=== PATIENT | female | born 1970 | race Caucasian/White ===

== ENCOUNTER 2018-02-15 14:30 | Outpatient (REF) | payer SELFPAY ==
[2018-02-15 22:35] LABS: CREATININE 0.88 mg/dL (0.55-1.02); Cholesterol 250 mg/dL (50-200); HDL Cholesterol 43 mg/dL (40-60); LDL CHOLESTEROL 168 mg/dL (<100); Triglyceride 138 mg/dL (30-150)
== END 2018-02-15 14:50 ==
LOC: NCHCN 14:30
PROVIDERS: PCP Nurse Practitioner Family; Visit Provider Nurse Practitioner Family
DX: R94.4 Abnormal results of kidney function studies (principal); I48.0 Paroxysmal atrial fibrillation; R10.13 Epigastric pain; F41.0 Panic disorder [episodic paroxysmal anxiety]; E78.5 Hyperlipidemia, unspecified; R00.2 Palpitations; R51 Headache; F41.9 Anxiety disorder, unspecified
CPT/HCPCS: 80061; 83721; 82565

== ENCOUNTER 2018-08-17 10:29 | Outpatient (REF) | payer SELFPAY ==
[2018-08-17 21:15] LABS: Abs Immature Grans 0.02 k/cumm (0.0-0.09); Absolute Basophil Count 0.07 k/cumm (0.0-0.2); Absolute Eosinophil Count 0.29 k/cumm (0.0-0.7); Absolute Lymphocyte Count 1.57 k/cumm (1.2-3.4); Absolute Monocyte Count 0.62 k/cumm (0.11-0.7); Absolute Neutrophil Count 3.72 k/cumm (1.2-6.7); Basophils % 1.1; Eosinophils % 4.6; HCT 37.1 % (36.0-46.0); HGB 12.1 g/dL (12.0-15.5); Immature Grans % 0.3; Mean Corp. HGB Concentration 32.6 g/dL (32.0-36.0); Mean Corpuscular Hemoglobin 29.4 pg (27.0-33.0); Mean Corpuscular Volume 90.3 fL (80-95); Mean Platelet Volume 11.6 fL (8.0-11.0); Monocytes % 9.9; Neutrophils % 59.1; Platelet Count 253 x1000/uL (130-400); RBC 4.11 m/cumm (4.00-5.20); RBC Distribution Width 13.5 % (11.7-14.6); White Blood Cell Count 6.29 k/cumm (4.4-10.8)
[2018-08-17 21:20] LABS: Albumin 3.6 g/dL (3.4-5.0); Anion Gap 11.4 mmol/L (3-11); BUN 12 mg/dL (7-18); CO2 25.6 mmol/L (21.0-32.0); CREATININE 0.97 mg/dL (0.55-1.02); Calcium 8.8 mg/dL (8.5-10.1); Chloride 104 mmol/L (98-107); Glucose 79 mg/dL (70-100); Potassium 4.1 mmol/L (3.5-5.1); Sodium 141 mmol/L (136-145)
[2018-08-17 21:46] LABS: ALT 25 U/L (12-78); AST 18 U/L (15-37); Alkaline Phosphatase 46 U/L (46-116); Bilirubin, Total 0.4 mg/dL (0.2-1.0)
== END 2018-08-17 10:49 ==
LOC: NCHCN 10:29
PROVIDERS: PCP Nurse Practitioner Family; Visit Provider Nurse Practitioner Family
DX: R10.13 Epigastric pain (principal); I48.0 Paroxysmal atrial fibrillation; E78.5 Hyperlipidemia, unspecified; R00.2 Palpitations; F41.0 Panic disorder [episodic paroxysmal anxiety]
CPT/HCPCS: 80053; 85025

== ENCOUNTER 2018-08-24 00:54 | Outpatient (CLI) | payer SELFPAY ==
--- NOTE | 2018-08-24 11:15 | DI.US_ITS ---
SYMPTOMS/DIAGNOSIS: ABD PAIN EPIGASTRIC, R10.13 ABDOMEN ULTRASOUND: Comparison is made with 2Oct17. The liver is normal in size and echogenicity. No focal liver lesions or biliary dilatation is seen. The gallbladder has a normal appearance without evidence of stones or wall thickening. The kidneys, spleen, pancreas and aorta are unremarkable. There is no ascites. IMPRESSION: Negative abdomen ultrasound.
== END 2018-08-24 01:14 ==
PROVIDERS: PCP Nurse Practitioner Family; Visit Provider Nurse Practitioner Family
DX: R10.13 Epigastric pain (principal)
CPT/HCPCS: 76700

== ENCOUNTER 2020-04-06 15:12 | Outpatient (REF) | payer OTHER, SELFPAY ==
[2020-04-06 21:45] LABS: ALT 21 U/L (14-59); AST 15 U/L (15-37); Albumin 3.9 g/dL (3.4-5.0); Alkaline Phosphatase 40 U/L (46-116); Anion Gap 8.4 mmol/L (3-11); BUN 13 mg/dL (7-18); Bilirubin, Total 0.4 mg/dL (0.2-1.0); CO2 25.6 mmol/L (21.0-32.0); Calcium 8.8 mg/dL (8.5-10.1); Calculated LDL 198 mg/dL (<100); Chloride 104 mmol/L (98-107); Cholesterol 277 mg/dL (<200); Estimated GFR 59.18 (mL/min/1.73m2); Glucose 74 mg/dL (74-106); HDL Cholesterol 44 mg/dL (40-60); Potassium 3.7 mmol/L (3.5-5.1); Sodium 138 mmol/L (136-145); Total Protein 7.4 g/dL (6.4-8.2); Triglyceride 179 mg/dL (<150); Vitamin B12 492 pg/mL (193-986)
[2020-04-09 11:37] LABS: Hepatitis C Ab w Rflx HCV PCR Negative (Negative)
[2020-04-09 11:50] LABS: HIV-1/2 Ag & Ab Screen Negative (Negative)
== END 2020-04-06 15:32 ==
LOC: NCHCN 15:12
PROVIDERS: PCP Nurse Practitioner Family; Visit Provider Nurse Practitioner Family
DX: E78.5 Hyperlipidemia, unspecified (principal); R51.9 Headache, unspecified; I48.0 Paroxysmal atrial fibrillation; R00.2 Palpitations; F41.9 Anxiety disorder, unspecified; F41.0 Panic disorder [episodic paroxysmal anxiety]; K44.9 Diaphragmatic hernia without obstruction or gangrene; Z11.4 Encounter for screening for human immunodeficiency virus [HIV]; Z11.59 Encounter for screening for other viral diseases; Z79.899 Other long term (current) drug therapy
CPT/HCPCS: 80053; 80061; 86803; 87389; 82607; 83735

== ENCOUNTER 2020-06-08 02:43 | Outpatient (CLI) | payer OTHER, SELFPAY ==
[2020-06-08 11:37] LABS: Source Nasal/Nares
[2020-06-08 16:48] LABS: COVID-19 PCR Negative (Negative)
== END 2020-06-08 02:44 | disposition home or self-care (01) ==
LOC: LBO 02:44
PROVIDERS: PCP Nurse Practitioner Family; Visit Provider Surgery
DX: Z20.822 Contact with and (suspected) exposure to COVID-19 (principal); Z01.818 Encounter for other preprocedural examination
CPT/HCPCS: 87635

== ENCOUNTER 2020-06-11 11:06 | Day surgery (SDC) | payer OTHER, SELFPAY ==
--- NOTE | 2020-06-11 06:58 | ENDO_ITS ---
Date of service: 06/11/20 Time of Service: 12:45 Endoscopy Report DATE OF PROCEDURE: 06/11/20 PRE-OP DIAGNOSIS: Gastric pain POST-OP DIAGNOSIS: same (mild gastritis and esophagitis) PROCEDURE: EGD with biopsies SURGEON: Casandra Paz ANESTHESIA TYPE: General:No Airway (ASA 2/Melissa Gould CRNA) ESTIMATED BLOOD LOSS: 2 PATHOLOGY: other (Duodenal bx, gastric bx, GE junction bx) COMPLICATIONS: None DISPOSITION: same day INDICATIONS: Mrs. Morse is a pleasant 49 year old female with gastric pain, bloating and some dysphagia over the last few months. She had an upper endoscopy done a few years ago and was noted to have a small hiatal hernia. At that time states she was started on Pepcid. In May she was switched over to omeprazole because she was having worsening symptoms. She did not feel that this was helping and so more recently she was started on pantoprazole 40 mg twice daily as well as Carafate 1 g 4 times a day. She continues to have bloating, dysphagia and intermittent epigastric pain despite these medications. She also has some intermittent nausea but no vomiting. We discussed upper endoscopy with biopsies. I also reviewed with her that if her stomach and esophagus are normal then we should pursue looking at her gallbladder as sometimes issues with the gallbladder can mimic gastritis. Risks, benefits and complications have been reviewed. Complications include but are not limited to bleeding, pain, perforation, sore throat, aspiration, and adverse reaction to the medications. Questions were entertained and answered to their satisfaction and they wished to proceed. No guarantees were given or implied. COVID-19 testing explained to the patient. Reason for test reviewed. Quarantine per state requirements reviewed with patient. Patient understands and agrees to testing FINDINGS: Mild inflammation of the stomach and esophagus PROCEDURE DESCRIPTION: After informed consent was obtained the patient was take to the procedure room and placed in a supine position. Monitors were applied and a time out was done. The patients name, date of , procedure type, allergies to medications and metal in their body was reviewed. A bite block was placed and the patient was sedated. Once sedated and comfortable the gastroscope was advanced through the oropharynx which was grossly normal into the esophagus. The proximal and mid- esophagus were normal. In the distal esophagus there was mild inflammation noted. The scope was advanced into the stomach and through the pylorus into the 3rd portion of the duodenum. The duodenum was noted to be normal. Biopsies were done to rule out Celiac. The scope was retracted back into the stomach. There was mild inflammation noted and biopsies were done to rule out H. pylori. There were no ulcers. The scope was retroflexed. The cardia and fundus were noted to be normal. There was a small hiatal hernia noted. The scope was retracted back into the esophagus and biopsies were done of the GE junction to rule out Copeland's. The Z line was regular. The GE junction was at 38 cm. The scope was removed and the patient was woken up and taken back to [facility] in stable condition. Follow up: 2 weeks in the office
--- NOTE | 2020-06-11 06:59 | W.PM.DSUDISC ---
Discharge Plan Disposition Patient Disposition: HOME Condition: Good Discharge Details Reason For Visit: Gastric pain Attending Provider: Casandra Paz Primary Care Provider: Maria D Mtz Home Meds and New Rx's Prescriptions: Continued pantoprazole 40 mg tablet,delayed release (DR/EC) 40 mg PO BID RF: 0 sucralfate 1 gram tablet 1 g PO QACHS RF: 0 aspirin [Adult Low Dose Aspirin] 81 mg tablet,delayed release (DR/EC) 81 mg PO DAILY RF: 0 lorazepam 0.5 mg tablet 0.5 mg PO TID PRNRF: 0 cholecalciferol (vitamin D3) [Vitamin D3] 400 UNIT tablet 400 unit PO DAILY RF: 0 Discharge Instructions Additional Instructions: Findings: mild inflammation of the stomach and esophagus Follow up: 2 weeks Please call if you develop: fevers >101.5 Nausea or Vomiting Abdominal pain that is not transient DAY SURGERY UNIT POST ENDOSCOPY INSTRUCTIONS 1. Because there will be medication in your system for the next 24 hours, you may feel a little sleepy. Your coordination will be affected. Therefore: a. Do not drive or operate dangerous equipment for 24 hours. b. Do not drink alcohol beverages for 24 hours (not even beer). c. Plan to go home and rest for the day. 2. Generally there are no restrictions on your activity after a day or so has gone by, but you may feel a bit fatigued for a few days. 3 After you arrive home you may have a light meal and return to a normal diet as you can tolerate it without feeling sick to your stomach. 4. After surgery, you may feel pain or discomfort. This should be only transient, but if it persists please contact your doctor. 5. If there are any questions regarding the findings of your procedure, please feel free to contact your doctor. 6. If you are unable to contact your doctor with a problem, contact the hospital at [phone]. 7. Continue all your regular medications unless directed otherwise. I understand the above instructions and have no questions. Signature of Patient or Responsible Adult Escort Date/Time Name of Responsible Adult Escort Signature of Nurse Date/Time Referrals: Casandra Paz MD [ [facility] STAFF PHYSICIAN] - 06/29/20 10:00 am Activity:: Activity as Tolerated Diet:: As Tolerated Discharge Orders Discharge Orders: Discharge Order (Routine); Ordered 06/11/20 Ordered By: Casandra Paz
[2020-06-11 11:35] VITALS: BP 130/77; PULSE 65; RESP 16; TEMP 36.2; O2SAT 100
[2020-06-11] MEDS: Lactated Ringers 1,000 ML 80 ML IV (12:00)
--- NOTE | 2020-06-11 12:24 | BOWEL_PTH ---
PATIENT: Odalis Morse LOC: [facility] U#:[id number] AGE/SX: 49/F ROOM: RE06/11/[address]: Casandra Paz MD : 1970 BED: DIS: 06/11/2020 SPEC #: [id number] RECD: 06/11/20 14:21 STATUS: LILI REChristine #: [id number] BARRETT: 06/11/20 12:[address]: Casandra Paz DEPT: Surgical Specimen RECD BY: Shelley Maurice ENTERED: 06/11/20 14:22 SP TYPE: Bowel OTHR DR: Maria D Mtz Tissues: 1 - BIOPSY BOWEL 2 - STOMACH BIOPSY 3 - ESOPHAGUS BIOPSY Procedures: SPECIAL STAIN 2 GROSS AND MICRO LEVEL 4 Comments: [id number]
[2020-06-11 13:04] VITALS: BP 109/65; PULSE 57; RESP 16; TEMP 36.4; O2SAT 99
== END 2020-06-11 13:43 | disposition home or self-care (01) ==
LOC: SUR 11:06
PROVIDERS: PCP Nurse Practitioner Family; Visit Provider Surgery
PROC: 0DJ68ZZ Inspection of Stomach, Via Natural or Artificial Opening Endoscopic (ICD-10-PCS; CPT 43235; principal; 2020-06-11 12:15)
DX: K21.00 Gastro-esophageal reflux disease with esophagitis, without bleeding (principal); K29.70 Gastritis, unspecified, without bleeding; K44.9 Diaphragmatic hernia without obstruction or gangrene; R10.13 Epigastric pain
CPT/HCPCS: 43239; 81025; 88305; 88313; J2001; J2405; J2704

== ENCOUNTER 2020-06-22 04:17 | Outpatient (CLI) | payer OTHER, SELFPAY ==
--- NOTE | 2020-06-22 06:30 | DI.NM_ITS ---
EXAM: NM HEPATOBILIARY CCK GRP CLINICAL HISTORY: Bloating,EPIGASTRIC PAIN,R10.13,R14.0. TECHNIQUE: Injected dose: 5 mCi Tc-99 mebrofenin Initial dynamic images: 60 minutes Post-Gallbladder fillin.1 mcg CCK infusion as per protocol. Addition images: Per protocol. COMPARISON: US US ABDOMEN from 08/24/2018 FINDINGS: Normal hepatic transit time. Prompt excretion into the small bowel. Prompt excretion into the gallbladder. The gallbladder ejection fraction was calculated at 44 percen t. (Normal [facility] gallbladder ejection fraction with CCK > 40%. IMPRESSION: 1. No evidence of acute cholecystitis or acalculous disease. SNM guidelines: Gallbladder visualization should be present by 3 hours. Delayed [id number] hilliard sit beyond 60 min raises the suspicion for partial common bile duct (CBD) obstruction. Gallbladder ejection fraction <35% has a good correlation with acalculous disease (i.e., chronic acal culous cholecystitis, cystic duct syndrome, sphincter of Oddi disease).
== END 2020-06-22 04:37 ==
PROVIDERS: PCP Nurse Practitioner Family; Visit Provider Surgery
DX: R10.13 Epigastric pain (principal); R14.0 Abdominal distension (gaseous)
CPT/HCPCS: 78227

== ENCOUNTER 2021-02-11 11:08 | Outpatient (REF) | payer OTHER, SELFPAY ==
[2021-02-11 16:15] LABS: Calculated LDL 215 mg/dL (<100); Cholesterol 291 mg/dL (<200); HDL Cholesterol 52 mg/dL (40-60); Triglyceride 121 mg/dL (<150)
== END 2021-02-11 11:09 | disposition home or self-care (01) ==
LOC: NCHCN 11:08
PROVIDERS: PCP Nurse Practitioner Family; Visit Provider Nurse Practitioner Family
DX: E78.5 Hyperlipidemia, unspecified (principal)
CPT/HCPCS: 80061

== ENCOUNTER 2022-02-24 17:46 | Outpatient (REF) | payer OTHER, SELFPAY ==
[2022-02-24 21:22] LABS: Calculated LDL 169 mg/dL (<100); Cholesterol 260 mg/dL (<200); HDL Cholesterol 47 mg/dL (40-60); Triglyceride 222 mg/dL (<150)
== END 2022-02-24 17:47 | disposition home or self-care (01) ==
LOC: NCHCN 17:46
PROVIDERS: PCP Nurse Practitioner Family; Visit Provider Nurse Practitioner Family
DX: E78.5 Hyperlipidemia, unspecified (principal)
CPT/HCPCS: 80061

== ENCOUNTER 2022-03-13 09:52 | Outpatient (RCR) | payer OTHER, SELFPAY ==
--- NOTE | 2022-03-13 09:45 | HOLTER_ITS ---
APPROVED REPORT Conclusion This is a 48-hour Holter monitor ordered for palpitations Rhythm throughout was sinus with an average heart rate of 61. Minimum was 44 maximum 117 There were rare isolated atrial premature beats There were frequent ventricular ectopic beats, comprising approximately 6% of total. There were no c ouplets triplets or ventricular tachycardia. Bigeminy and trigeminy were noted There was no atrial fibrillation, no high-grade AV block, no SVT, no pauses greater than 3 seconds Patient reported symptoms throughout the recording, likely related to frequent PVCs
== END 2022-04-08 23:59 | disposition home or self-care (01) ==
LOC: CARDOPNVT 09:52
PROVIDERS: PCP Nurse Practitioner Family; Visit Provider Nurse Practitioner Family
DX: I49.3 Ventricular premature depolarization (principal)
CPT/HCPCS: 93225; 93226

== ENCOUNTER 2022-03-20 15:37 | Outpatient (REF) | payer OTHER, SELFPAY ==
[2022-03-20 21:05] LABS: Abs Immature Grans 0.01 10^3/uL (0.0-0.06); Absolute Eosinophil Count 0.19 10^3/uL (0.0-0.7); Absolute Lymphocyte Count 2.13 10^3/uL (1.2-3.4); Absolute Monocyte Count 0.54 10^3/uL (0.1-0.8); Absolute Neutrophil Count 4.15 10^3/uL (1.2-6.7); Basophils % 1.4; Eosinophils % 2.7; HCT 36.8 % (36.0-46.0); HGB 12.1 g/dL (11.2-15.7); Immature Grans % 0.1; Lymphocytes % 29.9; MCHC 32.9 % (32.0-36.0); MCV 91 fL (80-95); MPV 10.9 fL (8.0-11.0); Monocytes % 7.6; Neutrophils % 58.3; Platelet Count 260 10^3/uL (130-400); RBC 4.04 10^6/uL (3.93-5.22); RDW 12.1 % (11.7-14.6); RDW-SD 40.5 fL; WBC 7.12 10^3/uL (4.4-10.8)
[2022-03-20 21:39] LABS: ALT 18 U/L (14-59); AST 18 U/L (15-37); Albumin 4.2 g/dL (3.4-5.0); Alkaline Phosphatase 44 U/L (46-116); BUN 12 mg/dL (7-18); Bilirubin, Total 0.3 mg/dL (0.2-1.0); CREATININE 1.1 mg/dL (0.55-1.02); Calcium 9.2 mg/dL (8.5-10.1); Chloride 103 mmol/L (98-107); Estimated GFR 61.22 (mL/min/1.73m2); Glucose 103 mg/dL (74-106); Lipase 113 U/L (73-393); Sodium 138 mmol/L (136-145); Total Protein 7.4 g/dL (6.4-8.2)
== END 2022-03-20 15:38 | disposition home or self-care (01) ==
LOC: NCHCN 15:37
PROVIDERS: PCP Nurse Practitioner Family; Visit Provider Family Medicine
DX: R10.13 Epigastric pain (principal)
CPT/HCPCS: 80053; 83690; 85025

== ENCOUNTER 2022-03-21 12:19 | Outpatient (REF) | payer OTHER, SELFPAY ==
[2022-03-24 15:01] LABS: Helicobacter pylori Ag, Feces Negative (Negative)
== END 2022-03-21 12:20 | disposition home or self-care (01) ==
LOC: NCHCN 12:19
PROVIDERS: PCP Nurse Practitioner Family; Visit Provider Family Medicine
DX: R10.13 Epigastric pain (principal)
CPT/HCPCS: 87338

== ENCOUNTER → 2023-06-26 00:18 | Outpatient (CLI) | payer OTHER, SELFPAY ==
--- NOTE | 2023-06-26 | DI.MAMMO_ITS ---
Exam(s) MAMMO SCREENING EXAM: MAMMO SCREENING CLINICAL HISTORY: SCREENING, FAMILY HX BREAST CA, Z80.3 TECHNIQUE: Mammograms were interpreted according to the usual protocol including computer analysis w [employer] CAD system, tomosynthesis and C-view imaging. COMPARISON: 2018 through 2022 FINDINGS: The breasts are composed of scattered fibroglandular densities, Breast Density category B. No suspicious masses or suspicious microcalcifications are seen. No skin thickening or abnormal axillary lymph nodes are seen. There has been no significant change from prior exams. IMPRESSION: BI-RADS Category 1, Negative mammogram Yearly screening mammography is recommended. Breast Density - Category B, scattered fibroglandular densities. A negative radiographic report should not delay biopsy if a dominant or clinically suspicious mass is present. Up to ten percent of cancers are not identified on mammography. A negative report may reinforce clinical impression. Adenosis and dense breasts may obscure an underlying neoplasm. False positive reports average 6 to 10%. Patient will receive a letter notifying them of these results.
== END ==
PROVIDERS: PCP Nurse Practitioner Family; Visit Provider Nurse Practitioner Family
DX: Z12.31 Encounter for screening mammogram for malignant neoplasm of breast (principal); Z80.3 Family history of malignant neoplasm of breast
CPT/HCPCS: 77063; 77067

== ENCOUNTER 2023-07-14 10:48 | Outpatient (REF) | payer OTHER, SELFPAY ==
[2023-07-14 15:40] LABS: ALT 29 U/L (14-59); AST 24 U/L (15-37); Albumin 3.8 g/dL (3.4-5.0); Alkaline Phosphatase 47 U/L (46-116); Anion Gap 7.8 mmol/L (3-11); BUN 15 mg/dL (7-18); Bilirubin, Total 0.4 mg/dL (0.2-1.0); CO2 28.2 mmol/L (21.0-32.0); Calcium 9.1 mg/dL (8.5-10.1); Calculated LDL 216 mg/dL (<100); Chloride 106 mmol/L (98-107); Cholesterol 299 mg/dL (<200); Estimated GFR 68.21 (mL/min/1.73m2); Glucose 84 mg/dL (74-106); HDL Cholesterol 60 mg/dL (40-60); Potassium 4.9 mmol/L (3.5-5.1); Sodium 142 mmol/L (136-145); Total Protein 7.1 g/dL (6.4-8.2); Triglyceride 115 mg/dL (<150)
== END 2023-07-14 10:49 | disposition home or self-care (01) ==
LOC: NCHCN 10:48
PROVIDERS: PCP Nurse Practitioner Family; Visit Provider Nurse Practitioner Family
DX: E78.5 Hyperlipidemia, unspecified (principal)
CPT/HCPCS: 80053; 80061

== ENCOUNTER 2023-08-19 13:54 | Outpatient (REF) | payer OTHER, SELFPAY ==
[2023-08-19 16:36] LABS: Bilirubin Negative (Negative); Blood Large (Negative); Clarity Cloudy (Clear); Glucose Negative (Negative); Ketones Negative (Negative); Leukocyte Esterase Moderate (Negative); Nitrite Negative (Negative); Specific Gravity 1.015 (1.005-1.025); Urobilinogen 0.2 mg/dL (Up to 0.2); pH 5.5 (5-8)
[2023-08-19 16:54] LABS: C & S Indicated? Yes; WBC >50 HPF (0-5)
== END 2023-08-19 13:55 | disposition home or self-care (01) ==
LOC: NCHCN 13:54
PROVIDERS: PCP Nurse Practitioner Family; Visit Provider Nurse Practitioner Family
DX: R35.0 Frequency of micturition (principal); R82.998 Other abnormal findings in urine
CPT/HCPCS: 81003; 81015; 87086

== ENCOUNTER 2023-09-28 13:52 | Outpatient (REF) | payer MEDICAID, SELFPAY ==
[2023-09-28 16:07] LABS: Bilirubin Negative (Negative); Blood Trace-intact (Negative); Clarity Clear (Clear); Glucose Negative (Negative); Ketones Negative (Negative); Leukocyte Esterase Negative (Negative); Nitrite Negative (Negative); Urobilinogen 0.2 mg/dL (Up to 0.2); pH 6.5 (5-8)
[2023-09-28 16:49] LABS: Bacteria Negative HPF (Negative); C & S Indicated? No; Casts Negative LPF (Negative); Crystals Negative HPF (Negative); Epithelial Cells Rare HPF (Negative); Mucus Negative (Negative); RBC 0-2 HPF (0-2); WBC 0-2 HPF (0-5)
== END 2023-09-28 13:53 | disposition home or self-care (01) ==
LOC: NCHCN 13:52
PROVIDERS: PCP Nurse Practitioner Family; Visit Provider Nurse Practitioner Family
DX: R31.21 Asymptomatic microscopic hematuria (principal)
CPT/HCPCS: 81003; 81015

== ENCOUNTER 2023-10-29 09:53 | Outpatient (REF) | payer MEDICAID, SELFPAY ==
[2023-10-29 16:09] LABS: ALT 29 U/L (14-59); AST 19 U/L (15-37); Albumin 3.8 g/dL (3.4-5.0); Alkaline Phosphatase 47 U/L (46-116); Anion Gap 9.1 mmol/L (3-11); BUN 13 mg/dL (7-18); Bilirubin, Total 0.39 mg/dL (0.2-1.0); CO2 26.9 mmol/L (21.0-32.0); Calcium 9.2 mg/dL (8.5-10.1); Calculated LDL 116 mg/dL (<100); Chloride 106 mmol/L (98-107); Cholesterol 194 mg/dL (<200); Estimated GFR 67.78 (mL/min/1.73m2); Glucose 89 mg/dL (74-106); HDL Cholesterol 58 mg/dL (40-60); Potassium 5.1 mmol/L (3.5-5.1); Sodium 142 mmol/L (136-145); Triglyceride 103 mg/dL (<150)
== END 2023-10-29 09:54 | disposition home or self-care (01) ==
LOC: NCHCN 09:53
PROVIDERS: PCP Nurse Practitioner Family; Visit Provider Nurse Practitioner Family
DX: E78.5 Hyperlipidemia, unspecified (principal)
CPT/HCPCS: 80053; 80061

== ENCOUNTER 2023-11-02 07:19 | Outpatient (CLI) | payer MEDICAID, SELFPAY ==
--- NOTE | 2023-11-03 08:16 | W.CARDEVENT ---
Date of service: 11/03/23 Time of Service: 08:16 Cardiac Event Recorder Referring Provider:: Maria D Mtz Indications:: Paroxysmal atrial fibrillation Cardiac Event Note: This is a cardiac event monitor. Patient was monitored for 12 days and 12 hours Predominant rhythm was sinus with an average heart rate of 64. Minimum was 44, maximum 148 there were occasional PVCs, Very rare couplets, no ventricular tachycardia. There were rare atrial premature beats. There were several brief self-limited atrial runs. There was no atrial fibrillation, no high-grade AV block, no pauses greater than 3 seconds. Symptoms were reported which did not correspond to any dysrhythmia
== END 2023-11-02 07:20 | disposition home or self-care (01) ==
LOC: CARDOPNVT 07:19
PROVIDERS: PCP Nurse Practitioner Family; Visit Provider Internal Medicine Cardiovascular Disease
DX: I48.0 Paroxysmal atrial fibrillation (principal); I49.1 Atrial premature depolarization

== ENCOUNTER 2024-09-29 16:09 | Outpatient (REF) | payer SELFPAY ==
[2024-09-29 16:03] LABS: ALT 33 U/L (14-59); AST 24 U/L (15-37); Albumin 3.9 g/dL (3.4-5.0); Alkaline Phosphatase 53 U/L (46-116); Anion Gap 8.8 mmol/L (3-11); BUN 11 mg/dL (7-18); Bilirubin, Total 0.5 mg/dL (0.2-1.0); CO2 28.2 mmol/L (21.0-32.0); Calcium 9.2 mg/dL (8.5-10.1); Calculated LDL 118 mg/dL (<100); Chloride 103 mmol/L (98-107); Cholesterol 191 mg/dL (<200); Estimated GFR 76.44 (mL/min/1.73m2); Glucose 82 mg/dL (74-106); HDL Cholesterol 55 mg/dL (>or=50); Potassium 4.4 mmol/L (3.5-5.1); Sodium 140 mmol/L (136-145); Total Protein 7.0 g/dL (6.4-8.2); Triglyceride 92 mg/dL (<150)
== END 2024-09-29 16:10 | disposition home or self-care (01) ==
LOC: NCHCN 16:09
PROVIDERS: PCP Nurse Practitioner Family; Visit Provider Nurse Practitioner Family
DX: E78.5 Hyperlipidemia, unspecified (principal)
CPT/HCPCS: 80053; 80061

== ENCOUNTER 2025-02-06 21:24 | Outpatient (REF) | payer MEDICAID, SELFPAY ==
[2025-02-06 22:11] LABS: Hemoglobin A1C 5.2 % (<5.7)
[2025-02-06 22:21] LABS: Cholesterol 290 mg/dL (<200); HDL Cholesterol 48 mg/dL (>40)
[2025-02-06 22:23] LABS: C-Reactive Protein < 0.50 mg/dL (<=0.50)
[2025-02-10 12:49] LABS: Apolipoprotein A1, S 134 mg/dL (>=140); Apolipoprotein B, S 153 mg/dL (See Comment); Apolipoprotein B/A 1 ratio 1.1 (See Comment)
== END 2025-02-06 21:25 | disposition home or self-care (01) ==
LOC: NCHCN 21:24
PROVIDERS: PCP Nurse Practitioner Family; Visit Provider Nurse Practitioner Family
DX: E78.5 Hyperlipidemia, unspecified (principal)
CPT/HCPCS: 80061; 82172; 83036; 86140